=== PATIENT | female | born 1940 | race Caucasian/White ===

== ENCOUNTER 2016-07-06 12:38 | Day surgery (SDC) | payer MEDICARE ==
--- NOTE | ~2016-07-06 | EGD ---
EGD REPORT [facility] [address] [address] NAME: PAGE TINOCO : [birth year] STATUS : REG [facility]#: [id number] AGE: 75 ADM/REG DATE : 07/06/16 MR#: [id number] REPORT SERV DATE: 07/06/16 DICTATED BY: WOODROW SNYDER DATE: 07/06/16 REPORT STATUS : Draft TRANSCRIBED BY: [employer] DATE: 07/06/16 [facility] Patient Name: Page Tinoco Date of : 1940 Attending MD: WOODROW SNYDER MD Procedure Date No Time: 07/06/2016 Procedure: Upper GI endoscopy Indications: Follow-up of Sanchez's esophagus, Diarrhea Referring MD: CHATA SANTOS MD Medicines: See the Anesthesia note for documentation of the administered medications Complications: No immediate complications. Procedure: Pre-Anesthesia Assessment: - ASA Grade Assessment: III - A patient with severe systemic disease. After obtaining informed consent, the endoscope was passed under direct vision. Throughout the procedure, the patient's blood pressure, pulse, and oxygen saturations were monitored continuously. The GIF [id number] was introduced through the mouth, and advanced to the second part of duodenum. The upper GI endoscopy was accomplished without difficulty. The patient tolerated the procedure well. Findings: The 2nd part of the duodenum was normal. Biopsies were taken with a cold forceps for histology. Mild inflammation was found in the gastric antrum. Biopsies were taken with a cold forceps for histology. The cardia and gastric fundus were normal on retroflexion. A small hiatus hernia was present. There were esophageal mucosal changes suspicious for short-segment Sanchez's esophagus present in the lower third of the esophagus. The maximum longitudinal extent of these mucosal changes was 1 cm in length. Biopsies were taken with a cold forceps for histology. Impression: - Normal 2nd part of the duodenum. Biopsied. - Gastritis. Biopsied. - Hiatus hernia. - Esophageal mucosal changes suspicious for short-segment Sanchez's esophagus. Biopsied. Recommendation: - Patient has a contact number available for emergencies. The signs and symptoms of potential delayed complications were discussed with the patient. Return to EGD REPORT [address] [address] NAME: PAGE TINOCO : [birth year] STATUS : REG [facility] PAT#: [id number] AGE: 75 ADM/REG DATE : 07/06/16 MR#: [id number] REPORT SERV DATE: 07/06/16 DICTATED BY: WOODROW SNYDER DATE: 07/06/16 REPORT STATUS : Draft TRANSCRIBED BY: [employer] DATE: 07/06/16 normal activities tomorrow. Written discharge instructions were provided to the patient. - Regular diet. - Continue present medications. - FOR YOUR BIOPSY RESULTS: Please go to [email or web address] and register to receive your results via the portal. Your biopsy results will be posted there in about 7 to 10 days. IF you do not see result in 10 days, call office. Procedure Code(s): --- Professional --- 44959, Esophagogastroduodenoscopy, flexible, transoral; with biopsy, single or multiple Diagnosis Code(s): --- Professional --- K22.70, Sanchez's esophagus without dysplasia K29.70, Gastritis, unspecified, without bleeding K44.9, Diaphragmatic hernia without obstruction or gangrene R19.7, Diarrhea, unspecified CPT copyright 2013 [employer]. All rights reserved. The codes documented in this report are preliminary and upon medical records coder review may be revised to meet current compliance requirements. Woodrow Snyder MD WOODROW SNYDER MD 07/06/2016 1:55 PM This report has been signed electronically. Number of Addenda: 0 Note Initiated On: 07/06/2016 1:41 PM Scope Withdrawal Time 0 hours 0 minutes 0 seconds [address] [id number]
--- NOTE | ~2016-07-06 | EGD ---
EGD REPORT [facility] [address] [address] NAME: PAGE TINOCO : 44 [place]US : [place] [facility] [place]#: [id number] AGE: 75 ADM/REG DATE : 07/06/16 MR#: [id number] REPORT SERV DATE: 07/06/16 DICTATED BY: WOODROW SNYDER DATE: 07/06/16 REPORT STATUS : Draft TRANSCRIBED BY: [employer] DATE: 07/06/16 [facility] Patient Name: Page Tinoco Date of : 1940 Attending MD: WOODROW SNYDER MD Procedure Date No Time: 07/06/2016 Procedure: Colonoscopy Indications: Diarrhea, Last colonoscopy: 2010 Referring MD: CHATA SANTOS MD Medicines: See the Anesthesia note for documentation of the administered medications Complications: No immediate complications. Procedure: Pre-Anesthesia Assessment: - ASA Grade Assessment: III - A patient with severe systemic disease. After I obtained informed consent, the scope was passed under direct vision. Throughout the procedure, the patient's blood pressure, pulse, and oxygen saturations were monitored continuously. The CF [id number] was introduced through the anus and advanced to the cecum, identified by appendiceal orifice and ileocecal valve. The colonoscopy was technically difficult and complex due to colonic spasm and patient coughing due to her smoking. The patient tolerated the procedure fairly well. The quality of the bowel preparation was adequate. Findings: The perianal and digital rectal examinations were normal. Internal hemorrhoids were found during retroflexion and were small. A single angioectasia was found in the transverse colon. Normal mucosa was found in the ascending colon. Biopsies were taken with a cold forceps for histology. Three sessile polyps were found in the recto-sigmoid colon. The polyps were small in size. These polyps were removed with a cold biopsy forceps. Resection and retrieval were complete. Normal mucosa was found in the rectum. Biopsies were taken with a cold forceps for histology. Impression: - Internal hemorrhoids. - A single colonic angioectasia. - Normal mucosa in the ascending colon. Biopsied. - Three small polyps at the recto-sigmoid colon. Resected and retrieved. - Normal mucosa in the rectum. Biopsied. EGD REPORT [address] [place]. [address] NAME: PAGE TINOCO : 44 [place] : [place] [facility] [place]#: [id number] AGE: 75 ADM/REG DATE : 07/06/16 MR#: [id number] REPORT SERV DATE: 07/06/16 DICTATED BY: WOODROW SNYDER DATE: 07/06/16 REPORT STATUS : Draft TRANSCRIBED BY: [employer] DATE: 07/06/16 Recommendation: - Patient has a contact number available for emergencies. The signs and symptoms of potential delayed complications were discussed with the patient. Return to normal activities tomorrow. Written discharge instructions were provided to the patient. - Regular diet. - Continue present medications. - Repeat colonoscopy for surveillance based on pathology results. - Follow up with Dr Snyder or his nurse practitioner in 4 weeks - FOR YOUR BIOPSY RESULTS: Please go to [email or web address] and register to receive your results via the portal. Your biopsy results will be posted there in about 7 to 10 days. IF you do not see result in 10 days, call office. Procedure Code(s): --- Professional --- 92358, Colonoscopy, flexible, proximal to splenic flexure; with biopsy, single or multiple Diagnosis Code(s): --- Professional --- K64.8, Other hemorrhoids K55.20, Angiodysplasia of colon without hemorrhage D12.7, Benign neoplasm of rectosigmoid junction R19.7, Diarrhea, unspecified CPT copyright 2013 [employer]. All rights reserved. The codes documented in this report are preliminary and upon first press operator review may be revised to meet current compliance requirements. Woodrow Snyder MD WOODROW SNYDER MD 07/06/2016 2:17 PM This report has been signed electronically. Number of Addenda: 0 Note Initiated On: 07/06/2016 1:39 PM Scope Withdrawal Time 0 hours 9 minutes 17 seconds [address] [id number]
[~2016-07-06 12:38] MED LIST: ALIGN4 MG PO; AMIT50 PO; APRIDA SC; ASAB PO; ATEN25 PO; COZAAR100 MG PO; DIL2TAB PO; FENESIN IR400 MG PO; FORTAMET500 MG PO; GAVISCO2 PO; HUMALOGPEN SC; HYDROCHLOROT12.5 MG PO; LANTUS SC; LANTUSCART SC; LEXAPRO5 MG PO; LIPITOR40 PO; NEUR300 PO; NORV5 PO; OXYCON10 PO; PRILO PO; SYSTANE OP; VENTOLIN HFA INH; VIST25 PO; ZEGERID1 CAP; ZEGERID1 CAP PO; ZYRTEC ALLGY10 MG PO
== END 2016-07-06 23:59 | disposition home or self-care (01) ==
LOC: DMU 12:38
PROVIDERS: Internal Medicine Gastroenterology
PROC: 0DB68ZX Excision of Stomach, Via Natural or Artificial Opening Endoscopic, Diagnostic (ICD-10-PCS; 2016-07-06)
PROC: 0DBK8ZX Excision of Ascending Colon, Via Natural or Artificial Opening Endoscopic, Diagnostic (ICD-10-PCS; 2016-07-06)
PROC: 0DBP8ZX Excision of Rectum, Via Natural or Artificial Opening Endoscopic, Diagnostic (ICD-10-PCS; 2016-07-06)
PROC: 0DBN8ZX Excision of Sigmoid Colon, Via Natural or Artificial Opening Endoscopic, Diagnostic (ICD-10-PCS; 2016-07-06)
PROC: 0DB98ZX Excision of Duodenum, Via Natural or Artificial Opening Endoscopic, Diagnostic (ICD-10-PCS; principal; 2016-07-06 13:00)
PROC: 0DB38ZX Excision of Lower Esophagus, Via Natural or Artificial Opening Endoscopic, Diagnostic (ICD-10-PCS; 2016-07-06 13:00)
DX: K63.5 Polyp of colon (principal); K20.9 Esophagitis, unspecified; K64.8 Other hemorrhoids; K55.20 Angiodysplasia of colon without hemorrhage; K22.70 Barrett's esophagus without dysplasia; K44.9 Diaphragmatic hernia without obstruction or gangrene; I10 Essential (primary) hypertension; E11.9 Type 2 diabetes mellitus without complications; F17.210 Nicotine dependence, cigarettes, uncomplicated; E78.00 Pure hypercholesterolemia, unspecified; M19.90 Unspecified osteoarthritis, unspecified site; F32.9 Major depressive disorder, single episode, unspecified; E66.9 Obesity, unspecified; Z88.8 Allergy status to other drugs, medicaments and biological substances; Z79.82 Long term (current) use of aspirin; Z79.4 Long term (current) use of insulin; Z79.899 Other long term (current) drug therapy; Z98.890 Other specified postprocedural states; Z96.652 Presence of left artificial knee joint; Z98.51 Tubal ligation status; Z90.49 Acquired absence of other specified parts of digestive tract
CPT/HCPCS: 82962; 88305